=== PATIENT | female | born 1955 | race American Indian/Alaskan Native ===

== ENCOUNTER 2021-09-06 22:03 | Emergency (ER) | payer OTHER ==
--- NOTE | 2021-09-06 23:49 | XRay Report ---
ABDOMEN 3 VIEW(S) INDICATION / CLINICAL INFORMATION: Abd pain. COMPARISON: 09/16/14 FINDINGS: TUBES / LINES: None. BOWEL GAS PATTERN: No significant abnormality. FREE AIR / EXTRALUMINAL GAS: None seen. ADDITIONAL FINDINGS: No significant additional findings. CHEST: Visualized chest shows no significant abnormality. IMPRESSION: 1. No significant abnormality. Signer Name: Jeff Cohen MD Signed: 09/06/2021 11:44 PM Workstation Name: [id number]
[2021-09-07 00:25] LABS: Basophils # (Auto) 0.1 K/mm3 (0.0-0.1); Basophils % (Auto) 1.4 % (0.0-1.8); Eosinophils % (Auto) 0.2 % (0.0-4.3); Hemoglobin 12.5 gm/dl (10.1-14.3); Lymphocytes # (Auto) 1.4 K/mm3 (1.2-5.4); Mean Corpuscular HGB Conc 33 % (30-34); Mean Corpuscular Volume 91 fl (79-97); Monocytes # (Auto) 0.2 K/mm3 (0.0-0.8); Monocytes % (Auto) 3.1 % (0.0-7.3); Platelet Count 279 K/mm3 (140-440); Red Blood Count 4.16 M/mm3 (3.65-5.03); Red Cell Distribution Width 14.6 % (13.2-15.2)
[2021-09-07] MEDS ORDERED: METOCLOPRAMIDE 10 MG/2 ML INJ IV ONE (00:42)
[2021-09-07] MEDS ORDERED: MORPHINE 4 MG/1 ML INJ IV ONE (00:42)
[2021-09-07] MEDS ORDERED: SODIUM CHLORIDE 0.9% 1000 ML 1,000 ML IV ONE (00:42)
[2021-09-07 00:44] LABS: Alanine Aminotransferase 17 units/L (7-56); Albumin 4.1 g/dL (3.9-5); BUN/Creatinine Ratio 12; Blood Urea Nitrogen 16 mg/dL (7-17); Calcium 8.7 mg/dL (8.4-10.2); Hemolysis Index 19
--- NOTE | 2021-09-07 00:44 | Event Note ---
Date: 09/07/21 Medical screening examination Patient is a 65-year-old female with a history of diabetes. She presents to the ER today with complaint of diffuse abdominal cramping, nausea vomiting. Reports that she was recently seen at [facility] a few days ago for similar symptoms. To the best of the patient's knowledge, she does not believe she has a history of gastroparesis. The patient states she can tolerate morphine and Dilaudid/hydromorphone for pain. Patient writhing on stretcher, appears to be in distress. Belly nontender. I suspect gastroparesis. However, given advanced age, medical comorbidities, we will treat her symptoms, obtain appropriate laboratory studies and EKG, obtain CT scan of the abdomen pelvis and reassess Vital Signs 09/06/21 22:15 Temperature 98.2 F Pulse Rate 90 Respiratory 18 Rate Blood Pressure 202/104 [Right] O2 Sat by Pulse 97 Oximetry Lab Results 09/06/21 Range/Units 23:52 WBC 5.9 (4.5-11.0) K/mm3 RBC 4.16 (3.65-5.03) M/mm3 Hgb 12.5 (10.1-14.3) gm/dl Hct 38.0 (30.3-42.9) % MCV 91 (79-97) fl MCH 30 (28-32) pg MCHC 33 (30-34) % RDW 14.6 (13.2-15.2) % Plt Count 279 (140-440) K/mm3 Lymph % (Auto) 23.0 (13.4-35.0) % White % (Auto) 3.1 (0.0-7.3) % Eos % (Auto) 0.2 (0.0-4.3) % Baso % (Auto) 1.4 (0.0-1.8) % Lymph # (Auto) 1.4 (1.2-5.4) K/mm3 White # (Auto) 0.2 (0.0-0.8) K/mm3 Eos # (Auto) 0.0 (0.0-0.4) K/mm3 Baso # (Auto) 0.1 (0.0-0.1) K/mm3 Seg Neutrophils % 72.3 H (40.0-70.0) % Seg Neutrophils # 4.3 (1.8-7.7) K/mm3
[2021-09-07] MEDS ORDERED: HYDROmorphone 1 MG/1 ML INJ IV ONE (00:46)
[2021-09-07 00:47] LABS: Bilirubin,Direct < 0.2 mg/dL (0-0.2)
--- NOTE | 2021-09-07 00:50 | Emergency Department Report ---
HPI - General Chief Complaint: Abdominal Pain Time Seen by Provider: 09/07/21 00:45 - HPI HPI: 65-year-old -[place] female presents to the emergency department with a complaint of abdominal pain, nausea with vomiting. Patient was admitted to from 08/28 until 09/02 for similar symptoms. She says that she was seen by gastroenterology, had imaging studies and possibly a scope. She says she is unsure what her discharge diagnosis was but it sounds consistent with peptic ulcer disease. She does have some discharge paperwork that shows she was prescribed a PPI and outpatient referral with GI. Patient says that she continued to have abdominal pain upon discharge and it has continued and gotten progressively worse since. Patient has a history of hypertension and insulin-dependent diabetes. No sick contacts at home. She describes her abdominal pain at 10 out of 10 in intensity. No known aggravating or alleviating factors. ED Past Medical Hx - Past Medical History Hx Hypertension: Yes (x 15 yrs, NO CP ) Hx Diabetes: Yes (since 07/1991) Hx GERD: Yes (occas) Hx Renal Disease: No Hx Headaches / Migraines: Yes (past hx migraines) Hx Asthma: Yes (last treated 1 yr ago) - Surgical History Past Surgical History?: Yes Additional Surgical History: Stomach - Social History Smoking Status: Never Smoker Substance Use Type: None - Medications Home Medications: Home Medications Medication Instructions Recorded Confirmed Last Taken Type Aspirin [Aspirin BABY CHEW TAB] 81 mg PO DAILY 08/28/14 09/15/14 09/13/14 History Insulin Aspart (Nf) [Novolog 100 10 unit SQ TID 08/28/14 09/15/14 09/14/14 History UNITS/ML] Insulin Glargine,Hum.rec.anlog 54 unit SQ HS 08/28/14 09/15/14 09/14/14 History [Lantus] Lisinopril/Hydrochlorothiazide 1 tab PO DAILY 08/28/14 09/15/14 09/14/14 History [Zestoretic 20-12.5 mg] Zolpidem (Nf) [Ambien] 10 mg PO HS 08/28/14 09/15/14 09/08/14 History diphenhydrAMINE [Benadryl] 25 mg PO PRN PRN 08/28/14 09/15/14 09/14/14 History Famotidine [Pepcid] 20 mg PO BID #20 tablet 09/07/21 Unknown Rx Metoclopramide [Reglan] 10 mg PO TID PRN #15 tab 09/07/21 Unknown Rx ED Review of Systems ROS: Stated complaint: STOMACH PAIN, VOMITING X 3 DAYS Other details as noted in HPI Comment: All other systems reviewed and negative Constitutional: denies: fever Eyes: denies: eye pain, vision change ENT: denies: ear pain, throat pain Respiratory: denies: cough, shortness of breath Cardiovascular: denies: chest pain, palpitations Gastrointestinal: abdominal pain, nausea, vomiting Genitourinary: denies: dysuria, discharge Musculoskeletal: denies: back pain, arthralgia Skin: denies: rash, lesions Neurological: denies: headache, weakness Physical Exam - Physical Exam Vital Signs: Vital Signs 09/06/21 22:15 Temperature 98.2 F Pulse Rate 90 Respiratory 18 Rate Blood Pressure 202/104 [Right] O2 Sat by Pulse 97 Oximetry Physical Exam: GENERAL: The patient is well-developed well-nourished. HENT: Normocephalic. Atraumatic. Patient has moist mucous membranes. EYES: Extraocular motions are intact. NECK: Supple. Trachea is midline. CHEST/LUNGS: Clear to auscultation. There is no respiratory distress noted. HEART/CARDIOVASCULAR: Regular. There is no tachycardia. There is no murmur. ABDOMEN: Abdomen is soft. Generalized abdominal tenderness to palpation. No guarding. Patient has normal bowel sounds. There is no abdominal distention. SKIN: Skin is warm and dry. NEURO: The patient is awake, alert, and oriented. The patient is cooperative. The patient has no focal neurologic deficits. Normal speech. MUSCULOSKELETAL: There is no tenderness or deformity. There is no limitation range of motion. ED Course Vital Signs 09/06/21 22:15 Temperature 98.2 F Pulse Rate 90 Respiratory 18 Rate Blood Pressure 202/104 [Right] O2 Sat by Pulse 97 Oximetry ED Medical Decision Making - Lab Data Result diagrams: 09/06/21 23:52 09/06/21 23:52 Lab Results 09/06/21 09/06/21 09/07/21 Range/Units 23:52 23:52 Unknown WBC 5.9 (4.5-11.0) K/mm3 RBC 4.16 (3.65-5.03) M/mm3 Hgb 12.5 (10.1-14.3) gm/dl Hct 38.0 (30.3-42.9) % MCV 91 (79-97) fl MCH 30 (28-32) pg MCHC 33 (30-34) % RDW 14.6 (13.2-15.2) % Plt Count 279 (140-440) K/mm3 Lymph % (Auto) 23.0 (13.4-35.0) % [place] % (Auto) 3.1 (0.0-7.3) % Eos % (Auto) 0.2 (0.0-4.3) % Baso % (Auto) 1.4 (0.0-1.8) % Lymph # (Auto) 1.4 (1.2-5.4) K/mm3 [place] # (Auto) 0.2 (0.0-0.8) K/mm3 Eos # (Auto) 0.0 (0.0-0.4) K/mm3 Baso # (Auto) 0.1 (0.0-0.1) K/mm3 Seg Neutrophils % 72.3 H (40.0-70.0) % Seg Neutrophils # 4.3 (1.8-7.7) K/mm3 Sodium 134 L (137-145) mmol/L Potassium 3.9 (3.6-5.0) mmol/L Chloride 99.3 (98-107) mmol/L Carbon Dioxide 20 L (22-30) mmol/L Anion Gap 19 mmol/L BUN 16 (7-17) mg/dL Creatinine 1.3 H (0.6-1.2) mg/dL Estimated GFR 49 ml/min BUN/Creatinine Ratio 12 % Glucose 239 H (65-100) mg/dL Calcium 8.7 (8.4-10.2) mg/dL Total Bilirubin 0.40 (0.1-1.2) mg/dL Direct Bilirubin < 0.2 (0-0.2) mg/dL Indirect Bilirubin 0.2 mg/dL AST 15 (5-40) units/L ALT 17 (7-56) units/L Alkaline Phosphatase 157 H (35-129) units/L Total Protein 7.4 (6.3-8.2) g/dL Albumin 4.1 (3.9-5) g/dL Albumin/Globulin Ratio 1.2 % Lipase 26 (13-60) units/L Urine Color Yellow (Yellow) Urine Turbidity Clear (Clear) Urine pH 6.0 (5.0-7.0) Ur Specific [place] 1.052 H (1.003-1.030) Urine Protein >500 (Negative) mg/dL Urine Glucose (UA) 150 (Negative) mg/dL Urine Ketones 20 (Negative) mg/dL Urine Blood Neg (Negative) Urine Nitrite Neg (Negative) Urine Bilirubin Neg (Negative) Urine Urobilinogen < 2.0 (<2.0) mg/dL Ur Leukocyte Esterase Neg (Negative) Urine WBC (Auto) 1.0 (0.0-6.0) /HPF Urine RBC (Auto) 5.0 (0.0-6.0) /HPF U Epithel Cells (Auto) 7.0 (0-13.0) /HPF Urine Mucus Few /HPF - EKG Data -: EKG Interpreted by Me EKG shows normal: sinus rhythm, axis, intervals, QRS complexes (LVH), ST-T waves Rate: normal - EKG Data When compared to previous EKG there are: previous EKG unavailable Interpretation: LVH - Radiology Data Radiology results: report reviewed, image reviewed interpreted by me: Chest x-ray does not show any acute process. There are no pleural effusions, obvious pneumonia and there is no pneumothorax. No widened mediastinum. Abdominal x-ray shows nonspecific nonobstructive bowel gas. No free air. CT ABDOMEN AND PELVIS WITH CONTRAST INDICATION / CLINICAL INFORMATION: Pt complains of abdominal pain with nausea and vomiting. Surgical History: Gastric Ulcers removed, "Total" Hysterectomy. TECHNIQUE: Axial CT images were obtained through the abdomen and pelvis after 100 mL Omnipaque [address] scans at this location are performed using CT dose reduction for ALARA by means of automated exposure control. COMPARISON: None available. FINDINGS: LOWER CHEST: No significant abnormality. LIVER: No significant abnormality. GALLBLADDER: No significant abnormality. BILE DUCTS: No significant abnormality. PANCREAS: No significant abnormality. SPLEEN: No significant abnormality. ADRENALS: No significant abnormality. RIGHT KIDNEY / URETER: No significant abnormality. LEFT KIDNEY / URETER: No significant abnormality. STOMACH / SMALL BOWEL: Mild thickening of the distal esophagus. Surgical clips at the gastroesophageal junction. Postoperative findings of the distal stomach. No acute abnormalities stomach. Fluid-filled, nondilated small bowel. COLON: No significant abnormality. APPENDIX: No significant abnormality. PERITONEUM: No free fluid. No free air. No fluid collection. LYMPH NODES: No significant adenopathy. AORTA / ARTERIES: No significant abnormality. IVC / VEINS: No signi ficant abnormality. URINARY BLADDER: No significant abnormality. REPRODUCTIVE ORGANS: Uterus is absent. No significant adnexal abnormality. ADDITIONAL FINDINGS: None. SKELETAL SYSTEM: No significant abnormality. IMPRESSION: 1. Fluid-filled, nondilated small bowel which can be seen in the setting of enteritis. 2. Mild thickening of the distal esophagus possibly related to vomiting. - Medical Decision Making This patient presents to the emergency department with a complaint of abdominal pain, nausea and vomiting, that has been going on since the patient was recently admitted and discharged from [facility]. On examination she has reproducible abdominal tenderness to palpation and has visible vomiting. The abdomen is soft and nondistended. The patient was given an IV, IV fluid resuscitation, a dose of IV analgesia, Pepcid and an antiemetic. She was later given a GI cocktail. Labs have been mostly unremarkable including CBC, metabolic panel, lipase and urinalysis other than some mild renal insufficiency with a GFR of about 47, and some mild dehydration with 20 ketones in the urine. CT scan of the abdomen and pelvis showed some signs of enteritis but otherwise no significant acute process. The patient was reevaluated multiple times and says she is feeling greatly improved. She was able to pass an oral challenge. Patient initially presented with very elevated blood pressure but it came down to a more reasonable level without antihypertensive medication given. Patient will be discharged home with a prescription for Reglan, Pepcid, and was given outpatient referral for [facility]. Critical Care Time: No Critical care attestation.: If time is entered above; I have spent that time in minutes in the direct care of this critically ill patient, excluding procedure time. ED Disposition Clinical Impression: Mild renal insufficiency, Dehydration, Enteritis Abdominal pain Qualifiers: Abdominal location: generalized Qualified Code(s): R10.84 - Generalized abdominal pain Hypertension Qualifiers: Hypertension type: primary hypertension Qualified Code(s): I10 - Essential (primary) hypertension Nausea & vomiting Qualifiers: Vomiting type: unspecified Vomiting Intractability: non-intractable Qualified Code(s): R11.2 - Nausea with vomiting, unspecified Disposition: HOME / SELF CARE / HOMELESS Is pt being admited?: No Condition: Stable Instructions: Abdominal Pain, Adult, Nausea and Vomiting, Adult, Hypertension, Adult, Dehydration, Adult, Abdominal Pain (ED), Hypertension (ED) Additional Instructions: Please increase your oral rehydration. Follow-up with a primary care physician in the next few days. I have given you a referral for [facility] to follow-up regarding your recurrent abdominal pains, nausea and vomiting. Take all medications as prescribed. Return to the emergency department with any worsening of your symptoms, new or concerning symptoms not addressed during this current emergency department visit, or with any acute distress. Prescriptions: Famotidine [Pepcid] 20 mg PO BID #20 tablet Metoclopramide [Reglan] 10 mg PO TID PRN #15 tab PRN Reason: Nausea Referrals: [facility] [Provider Group] - 3-5 Days Time of Disposition: 04:58
--- NOTE | 2021-09-07 02:10 | Cat Scan Report ---
CT ABDOMEN AND PELVIS WITH CONTRAST INDICATION / CLINICAL INFORMATION: Pt complains of abdominal pain with nausea and vomiting. Surgical History: Gastric Ulcers removed, "Total" Hysterectomy. TECHNIQUE: Axial CT images were obtained through the abdomen and pelvis after 100 mL Omnipaque [address] scans at this location are performed using CT dose reduction for ALARA by means of automated exposure control. COMPARISON: None available. FINDINGS: LOWER CHEST: No significant abnormality. LIVER: No significant abnormality. GALLBLADDER: No significant abnormality. BILE DUCTS: No significant abnormality. PANCREAS: No significant abnormality. SPLEEN: No significant abnormality. ADRENALS: No significant abnormality. RIGHT KIDNEY / URETER: No significant abnormality. LEFT KIDNEY / URETER: No significant abnormality. STOMACH / SMALL BOWEL: Mild thickening of the distal esophagus. Surgical clips at the gastroesophagea l junction. Postoperative findings of the distal stomach. No acute abnormalities stomach. Fluid-fille d, nondilated small bowel. COLON: No significant abnormality. APPENDIX: No significant abnormality. PERITONEUM: No free fluid. No free air. No fluid collection. LYMPH NODES: No significant adenopathy. AORTA / ARTERIES: No significant abnormality. IVC / VEINS: No significant abnormality. URINARY BLADDER: No significant abnormality. REPRODUCTIVE ORGANS: Uterus is absent. No significant adnexal abnormality. ADDITIONAL FINDINGS: None. SKELETAL SYSTEM: No significant abnormality. IMPRESSION: 1. Fluid-filled, nondilated small bowel which can be seen in the setting of enteritis. 2. Mild thickening of the distal esophagus possibly related to vomiting. Signer Name: Jeff Cohen MD Signed: 09/07/2021 2:06 AM Workstation Name: [id number]
[2021-09-07] MEDS ORDERED: LIDOCAINE VISCOUS 2% 15 ML ORAL LIQD PO ONE (02:17)
[2021-09-07] MEDS ORDERED: ALUM-MAG HYDROXIDE-SIMETHICONE 200-200-20MG/5ML ORAL LIQD 30 ML PO ONE (02:17)
[2021-09-07 04:45] LABS: Bilirubin,Urine NEG (Negative); Blood,Urine NEG (Negative); Color,Urine Yellow (Yellow); Mucus,Urine FEW /HPF; Protein,Urine >500 mg/dL (Negative); Urobilinogen,Urine < 2.0 mg/dL (<2.0)
[2021-09-07 04:49] VITALS: BP 151/87
--- NOTE | 2021-09-07 11:28 | Electrocardiograph Report ---
[facility] Test Date: 2021-09-07 Test Time: 02:57:08 Pat Name: BEN DOW Department: Room: Gender: F [employer]: [id number] : [id number] Requested By: MOISE HOWARD Order Number: [id number] Reading MD: Mumtaz Mcqueen Measurements Intervals [place] Rate: 90 P: 70 ID: [id number] QRS: 24 QRSD: 75 T: 55 QT: 394 QTc: 484 Interpretive Statements Sinus rhythm Probable left atrial enlargement ST depression consider acute inferolateral ischemia No previous ECG available for comparison Electronically Signed On 09-07-2021 11:28:07 EST by Mumtaz Mcqueen
== END 2021-09-07 05:15 | disposition home or self-care (01) ==
LOC: ED 22:03
DX: E86.0 Dehydration (principal); R10.9 Unspecified abdominal pain; R11.2 Nausea with vomiting, unspecified; K52.9 Noninfective gastroenteritis and colitis, unspecified; N28.9 Disorder of kidney and ureter, unspecified; E11.8 Type 2 diabetes mellitus with unspecified complications; K21.9 Gastro-esophageal reflux disease without esophagitis; G43.909 Migraine, unspecified, not intractable, without status migrainosus; J45.909 Unspecified asthma, uncomplicated; Z98.890 Other specified postprocedural states; Z91.040 Latex allergy status; Z91.013 Allergy to seafood; Z88.8 Allergy status to other drugs, medicaments and biological substances
CPT/HCPCS: 36415; 74022; 74177; 80048; 80076; 81001; 83690; 85025; 93005; 96361; 96374; 96375; 99285; J1170; J2765; J7030; Q9967